=== PATIENT | male | born 1965 | race Caucasian/White ===

== ENCOUNTER 2025-07-15 08:00 | Outpatient (RCR) | payer MEDICAID, SELFPAY ==
--- NOTE | 2025-07-06 08:20 | PT.OIERPT ---
PT OP Initial Eval Patient Information Outpatient Physical Therapy Treatment Date: 07/06/25 Visit Reasons: LEFT HAND CONTRACTURE Medical Diagnosis: M72.0 Treatment Dx #1: Left Hand Pain Treatment Dx #2: Left Hand Weakness Smoking Status Smoking Status: Never smoker Initial Assessment Subjective: Pt is a 60 y/o male s/p left hand surgery secondary to 5th digit dupuytren's contracture 06/07/25. Pt still has pain (7/10) with activities. Pt has limitation with gripping, lifting, chores, self care, cooking, cleaning, and performing recreational activities. 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 Pt will benefit from physical therapy to increase ROM, strength, and work on hand dexterity. 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
--- NOTE | 2025-07-13 08:36 | PT.ODAYNRPT ---
PT Outpatient Daily Note OP Daily Note Outpatient Physical Therapy Treatment Date: 07/13/25 Visit Reasons: LEFT HAND CONTRACTURE Subjective: Pt's finger feels tight but has minimal pain. Objective: Please see flow chart for list of ther ex performed Assessment: cues to pace throughout PT session to decrease hand fatigue. Pt tolerate all exercises with minimal pain Plan: Continue with PT Length of Time (minutes) of Treatment: 30 Minutes Procedure Charges Therapeutic Exercise 30 minutes: Yes
--- NOTE | 2025-07-15 08:55 | PT.ODAYNRPT ---
PT Outpatient Daily Note OP Daily Note Outpatient Physical Therapy Treatment Date: 07/15/25 Visit Reasons: LEFT HAND CONTRACTURE Subjective: Pt's hand feels good. Minimal pain and soreness reported after last session. Objective: Please see flow chart for list of ther ex performed Assessment: tolerate exercises with minimal pain; cues to pace throughout PT session to decrease fatigue Plan: Continue with PT Length of Time (minutes) of Treatment: 30 Minutes Procedure Charges Therapeutic Exercise 30 minutes: Yes
== END 2025-07-15 23:59 | disposition home or self-care (01) ==
LOC: CPTX 08:00
PROVIDERS: PCP Nurse Practitioner Gerontology; Referring Provider Nurse Practitioner Gerontology; Visit Provider Nurse Practitioner Gerontology
DX: M79.642 Pain in left hand (principal); R53.1 Weakness; Z98.890 Other specified postprocedural states
CPT/HCPCS: 97110; 97162

== ENCOUNTER 2025-08-09 08:00 | Outpatient (RCR) | payer MEDICAID, SELFPAY ==
--- NOTE | 2025-07-19 08:36 | PT.ODAYNRPT ---
PT Outpatient Daily Note OP Daily Note Outpatient Physical Therapy Treatment Date: 07/19/25 Visit Reasons: left hand contracture Subjective: Pt reports L finger is moving better, feels like the swelling is what is limiting him. Objective: Please see flow sheet for ther ex list. Assessment: Pt tolerated interventions with no complaints. Plan: Continue with poC. Length of Time (minutes) of Treatment: 30 Minutes Procedure Charges Therapeutic Exercise 30 minutes: Yes
--- NOTE | 2025-07-21 08:30 | PT.ODAYNRPT ---
PT Outpatient Daily Note OP Daily Note Outpatient Physical Therapy Treatment Date: 07/21/25 Visit Reasons: left hand contracture Subjective: Pt's hand is better and does not have any concerns. Objective: Please see flow chart for list of ther ex performed Assessment: tolerate exercises with minimal pain Plan: Continue with PT Length of Time (minutes) of Treatment: 30 Minutes Procedure Charges Therapeutic Exercise 30 minutes: Yes
--- NOTE | 2025-07-27 08:33 | PT.ODAYNRPT ---
PT Outpatient Daily Note OP Daily Note Outpatient Physical Therapy Treatment Date: 07/27/25 Visit Reasons: left hand contracture Subjective: Pt reports hand is doing better but still feels some stiffness due location of scar. Objective: Please see flow sheet for ther ex list. Assessment: ROm of 5th digit continues to improve. Plan: Continue with poC. Length of Time (minutes) of Treatment: 30 Minutes Procedure Charges Therapeutic Exercise 30 minutes: Yes
--- NOTE | 2025-08-03 08:37 | PT.ODAYNRPT ---
PT Outpatient Daily Note OP Daily Note Outpatient Physical Therapy Treatment Date: 08/03/25 Visit Reasons: left hand contracture Subjective: pt reports progress with hand but notices he still can not close hand all the way. Objective: Please see flow sheet for ther ex list. 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 Plan: Continue with poC. Length of Time (minutes) of Treatment: 30 Minutes Procedure Charges Therapeutic Exercise 30 minutes: Yes
--- NOTE | 2025-08-09 08:37 | PT.ODAYNRPT ---
PT Outpatient Daily Note OP Daily Note Outpatient Physical Therapy Treatment Date: 08/09/25 Visit Reasons: left hand contracture Subjective: Pt c/o pain along the scar feels like there is a little knot. Pt concerned finger is going to stay crooked. Objective: Please see flow sheet for ther ex list. Assessment: Focus on restoring strength and ROm. Perfomed scar mobs pt tolerated well. Plan: Continue with pOC. Length of Time (minutes) of Treatment: 30 Minutes Procedure Charges Therapeutic Exercise 30 minutes: Yes
== END 2025-08-14 23:59 | disposition home or self-care (01) ==
LOC: CPTX 08:00
PROVIDERS: PCP Nurse Practitioner Gerontology; Referring Provider Nurse Practitioner Gerontology; Visit Provider Nurse Practitioner Gerontology
DX: M79.642 Pain in left hand (principal); R53.1 Weakness; M72.0 Palmar fascial fibromatosis [Dupuytren]
CPT/HCPCS: 97110

== ENCOUNTER 2025-08-15 09:09 | Outpatient (RCR) | payer MEDICAID, SELFPAY ==
--- NOTE | 2025-08-15 09:45 | PT.ODS1RPT ---
PT OP Progress/Discharge Note Date of Service: 08/15/25 Progress Note/DC Note Progress Note/Discharge Note: Progress Note Patient Information Visit Reasons: left hand pain Medical Diagnosis: M72.0 Treatment Dx #1: Left Hand Pain Treatment Dx #2: Left Hand Weakness Service Continue Service or Discharge: Continue Service Certification Date Certification Dates: 08/15/25 to 11/13/25 Status Subjective: Pt's hand is better, however, still has pain in the pinky. Pt recently seen hand surgeon but not much was mentioned. Pt has started gripping, lifting, self care, and performing recreational activities with less limitation. Pt will like to continue physical therapy until he sees surgeon next month. 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 Pt has not met set goals and will benefit from additional physical therapy to work on ROM and strength; thank you for your referrals. Plan: Continue with PT/POC and add 8 sessions (2 x wk for 4 wks) Procedure Charges Therapeutic Exercise 30 minutes: Yes
== END 2025-09-14 23:59 | disposition home or self-care (01) ==
LOC: CPTX 09:09
PROVIDERS: PCP Nurse Practitioner Gerontology; Referring Provider Nurse Practitioner Gerontology; Visit Provider Nurse Practitioner Gerontology
DX: M79.642 Pain in left hand (principal); R53.1 Weakness; Z98.890 Other specified postprocedural states
CPT/HCPCS: 97110